=== PATIENT | male | born 1945 | race Hispanic/Latino ===

== ENCOUNTER 2018-02-27 07:38 | Day surgery (SDC) | payer MEDICARE ==
[~2018-02-27 07:38] MED LIST: ANCEF/STERILE WATER 2 GM/20 ML IV NR; DILAUDID IV PRN; ZOFRAN IV PRN
[2018-02-27] MEDS ORDERED: VERSED IV NR (08:00)
[2018-02-27] MEDS ORDERED: LACTATED RINGERS 1,000 ML IV SCH ×2 (08:00)
--- NOTE | 2018-02-27 09:06 | XRay Report ---
AP ABDOMEN: HISTORY: Left kidney stone. The renal shadows appear normal size, contour and position. 2 or 3 small calcifications overlie the mid right kidney. A 5 mm calcification overlies the expected course of the left ureter at the level of L5. The intestinal gas pattern is within normal limits. IMPRESSION: Possible left ureteral stone as described.
--- NOTE | 2018-02-27 09:14 | Cat Scan Report ---
CT ABDOMEN PELVIS WITHOUT CONTRAST: HISTORY: Left kidney stone. COMPARISON: AP abdomen performed the same day. TECHNIQUE: Helical CT in 1.25mm intervals without IV contrast. Sagittal and coronal reconstructions. FINDINGS: Lung bases: Normal. Liver: Normal. Biliary system: Normal. Pancreas: Normal. Spleen: Normal. Kidneys/ureters/bladder: The kidneys are normal size and position. A 4.3 cm simple cyst is identified at the superior pole of the right kidney. Bilateral renal calyceal stones are identified. A solitary 4 mm stone is identified in the mid left kidney. There are 2 calyceal stones measuring 4 mm in the mid right kidney. A 6 x 7 x 9 mm stone is identified in the mid left ureter at the level of L5. There may be minimal upstream left hydronephrosis. The bladder is unremarkable. Adrenal glands: Normal. Aorta: Within normal limits. Intestines: Moderate sigmoid diverticulosis is identified. No evidence for acute inflammation or obstruction. Appendix: Normal. Pelvic viscera: Normal. Ascites: None. Adenopathy: None. Musculoskeletal: The bony structures appear demineralized. Moderate degenerative changes are noted throughout the thoracic or lumbar spine. No fracture or suspicious bony lesion. IMPRESSION: Bilateral nephrolithiasis. Left ureteral stone as described.
[2018-02-27] MEDS ORDERED: ZOFRAN ONE (10:07)
[2018-02-27] MEDS ORDERED: SUBLIMAZE ONE (10:07)
[2018-02-27] MEDS ORDERED: DIPRIVAN 10 MG/ML IV ONE (10:07)
[2018-02-27] MEDS ORDERED: DECADRON ONE (10:43)
[2018-02-27] MEDS ORDERED: ROBINUL ONE (10:43)
--- NOTE | 2018-02-27 11:55 | Post Operative Note ---
Date of procedure: 02/27/18 Pre-op diagnosis: l ureteral stone Post-op diagnosis: same Findings: as above Procedure: left eswl Anesthesia: KEVYN Surgeon: COREY MATHEWS Estimated blood loss: none Pathology: none Condition: stable Disposition: PACU
--- NOTE | 2018-02-27 11:56 | Discharge Summary ---
Short Stay Discharge Plan Activity: other (no straining ) Weight Bearing Status: Full Weight Bearing Diet: low fat, low cholesterol, low salt Special Instructions: other (inc fluids ) Follow up with: PRIMARY CARE, [Primary Care Provider] - 7 Days EBONY JACKSON MD [Staff Physician] - 7 Days
--- NOTE | 2018-02-27 12:05 | Operative Report ---
PREOPERATIVE DIAGNOSIS: Left mid ureteral stone. POSTOPERATIVE DIAGNOSIS: Left mid ureteral stone. PROCEDURE: Left in situ lithotripsy. SURGEON: Clinton Carballo MD ANESTHESIA: General. FINDINGS: This is a patient of Dr. Lopez who states he might have passed it. He had no pain. He had another scan which showed the stone in the mid ureter. It is about 5.4 mm. He now presents for lithotripsy. DESCRIPTION OF PROCEDURE: The patient was brought to lithotripsy and placed on the table. Stone was just well localized, both in the AP and oblique image. Shocks were begun at 1 kV increased to maximum of 10 kV. A total of 2750 shocks were given. The patient tolerated the procedure well. The stone did spread out, did crack. He was not hurting so we elected not to place a stent. I discussed this with Dr. Lopez, brought to recovery in stable condition. JOB# [id number] WINSTON/RENEE
--- NOTE | 2018-02-27 12:31 | Anesthesia Day of Surgery ---
Anesthesia Day of Surgery - Day of Surgery Patient Examined: Yes Patient H&P Reviewed: Yes Patient is NPO: Yes
--- NOTE | 2018-02-27 12:31 | Anesthesia Consultation ---
Anesthesia Consult and Med Hx Date of service: 02/27/18 - Airway Anesthetic Teeth Evaluation: Poor ROM Head & Neck: Adequate Mental/Hyoid Distance: Adequate Mallampati Class: Class III Intubation Access Assessment: Possibly Difficult - Pulmonary Exam CTA: Yes - Cardiac Exam Cardiac Exam: RRR - Pre-Operative Health Status ASA Pre-Surgery Classification: ASA3 Proposed Anesthetic Plan: General - Pulmonary Hx Smoking: Yes (STOPPED 2015) Hx Sleep Apnea: No (SHARI PRE SCREEN HIGH RISK) - Cardiovascular System Hx Hypertension: Yes (started 2 yrs ago) - Other Systems Hx Alcohol Use: No Hx Cancer: No
[2018-02-27 12:40] VITALS: BP 138/72
--- NOTE | 2018-02-27 16:04 | Post Anesthesia Evaluation ---
- Post Anesthesia Evaluation Patient Participated: Yes Airway Patent: Yes Stable Respiratory Function: Yes Nausea/Vomiting: No Temp > 96.8F: Yes Pain Manageable: Yes Adequeate Hydration: Yes Anesthesia Complications: No
== END 2018-02-27 07:39 | disposition home or self-care (01) ==
LOC: OR 07:38
PROVIDERS: ATTEND Urology
DX: N13.2 Hydronephrosis with renal and ureteral calculous obstruction (principal); E78.00 Pure hypercholesterolemia, unspecified; I10 Essential (primary) hypertension; Z87.891 Personal history of nicotine dependence; Z79.899 Other long term (current) drug therapy; Z98.49 Cataract extraction status, unspecified eye; Z98.890 Other specified postprocedural states
CPT/HCPCS: 50590; 74018; 74176; J0690; J1100; J2250; J2405; J2704; J3010; J7120